=== PATIENT | female | born 1980 | race Two or more races ===

== ENCOUNTER → 2020-08-17 | Day surgery (SDC) | payer OTHER ==
[~2020-08-17] MED LIST: ACETAMINOPHEN500 M1 PO; CLONAZEPAM0.5 MG PO; COLACE100 MG PO; EFFEXOR XR150 MG PO; MOTRIN600 MG PO; OXY-IR 5MG5 MG PO; PRAZOSIN HCL5 MG PO; QUETIAPINE FUM300 M1 PO; REXULTI1 MG PO; SINEQUAN25 MG PO; SYNTHROID50 MCG PO; TOPAMAX50 MG PO; VENTOLIN HFA IN18 GM INH; VITAMIN D310 MC3 PO
== END | disposition home or self-care (01) ==
LOC: FAS 11:00
DX: K42.0 Umbilical hernia with obstruction, without gangrene (principal); E03.9 Hypothyroidism, unspecified; E78.00 Pure hypercholesterolemia, unspecified; J45.909 Unspecified asthma, uncomplicated; M19.90 Unspecified osteoarthritis, unspecified site; D64.9 Anemia, unspecified; E66.01 Morbid (severe) obesity due to excess calories; F32.2 Major depressive disorder, single episode, severe without psychotic features; F41.9 Anxiety disorder, unspecified; E55.9 Vitamin D deficiency, unspecified; Z68.42 Body mass index [BMI] 45.0-49.9, adult; Z79.890 Hormone replacement therapy; Z87.891 Personal history of nicotine dependence; Z88.8 Allergy status to other drugs, medicaments and biological substances; Z98.84 Bariatric surgery status
CPT/HCPCS: J0690; J1100; J1644; J1885; J2250; J2370; J2405; J2704; J2710; J3010; J7120